=== PATIENT | female | born 1945 | race Two or more races ===

== ENCOUNTER → 2017-08-20 | Emergency (ER) | payer OTHER ==
[~2017-08-20] VITALS: Ht 154.9 cm; Wt 53.5 kg
[~2017-08-20] MED LIST: BACTRIM DS TAB1 EACH PO; TAMS0.4C PO
== END | disposition home or self-care (01) ==
LOC: ER 22:53
DX: N13.2 Hydronephrosis with renal and ureteral calculous obstruction (principal)

== ENCOUNTER 2018-11-07 17:45 | Emergency (ER) | payer OTHER ==
[~2018-11-07] VITALS: Ht 154.9 cm; Wt 53.5 kg
== END 2018-11-07 22:05 | disposition home or self-care (01) ==
LOC: ER 17:45
DX: N20.9 Urinary calculus, unspecified (principal); R31.0 Gross hematuria

== ENCOUNTER 2019-05-30 10:08 | Emergency (ER) | payer OTHER ==
[~2019-05-30] VITALS: Ht 154.9 cm; Wt 59.9 kg
== END 2019-05-30 20:13 | disposition home or self-care (01) ==
LOC: ER 10:08
DX: E86.0 Dehydration (principal); R51 Headache; R11.2 Nausea with vomiting, unspecified

== ENCOUNTER 2020-04-29 02:59 | Emergency (ER) | payer OTHER ==
[~2020-04-29] VITALS: Ht 154.9 cm; Wt 54.4 kg
[2020-04-29] MEDS ORDERED: CIPRO500 MG PO (05:25)
== END 2020-04-29 05:40 | disposition home or self-care (01) ==
LOC: ER 02:59
DX: N20.0 Calculus of kidney (principal)

== ENCOUNTER 2020-05-01 10:18 | Emergency (ER) | payer OTHER ==
[~2020-05-01] VITALS: Ht 154.9 cm; Wt 52.2 kg
[~2020-05-01 10:18] MED LIST changes: +CIPRO500 MG PO
== END 2020-05-01 19:40 | disposition home or self-care (01) ==
LOC: ER 10:18
DX: K52.89 Other specified noninfective gastroenteritis and colitis (principal); E86.0 Dehydration; N20.0 Calculus of kidney; R31.0 Gross hematuria; R10.32 Left lower quadrant pain; R50.9 Fever, unspecified

== ENCOUNTER 2020-05-13 09:32 | Outpatient (CLI) | payer OTHER | END 2020-05-13 09:33 | disposition home or self-care (01) | LOC: SONOGRAMA 09:32 | PROVIDERS: ATTEND Internal Medicine | DX: N20.0 Calculus of kidney (principal); C50.212 Malignant neoplasm of upper-inner quadrant of left female breast ==

== ENCOUNTER 2020-07-14 06:26 | Day surgery (SDC) | payer OTHER | END 2020-07-14 19:20 | disposition home or self-care (01) | LOC: CIR.AMB 06:26 | PROVIDERS: ATTEND Urology | DX: N13.2 Hydronephrosis with renal and ureteral calculous obstruction (principal); Z20.828 Contact with and (suspected) exposure to other viral communicable diseases ==

== ENCOUNTER 2020-07-18 22:08 | Inpatient (IN) | payer OTHER ==
[~2020-07-18] VITALS: Ht 154.9 cm; Wt 52.2 kg
== END 2020-07-21 22:00 | disposition home or self-care (01) | DRG 661 ==
LOC: ER 22:08 → SURH 07-19 04:03 → SURG 07-19 05:00 → SURH 07-19 08:23
PROVIDERS: ADMIT Urology; ATTEND Urology
PROC: 0T768DZ Dilation of Right Ureter with Intraluminal Device, Via Natural or Artificial Opening Endoscopic (ICD-10-PCS; principal; 2020-07-19)
PROC: 0TF38ZZ Fragmentation in Right Kidney Pelvis, Via Natural or Artificial Opening Endoscopic (ICD-10-PCS; 2020-07-19)
PROC: 0TF68ZZ Fragmentation in Right Ureter, Via Natural or Artificial Opening Endoscopic (ICD-10-PCS; 2020-07-19)
DX: N20.1 Calculus of ureter (principal); N20.0 Calculus of kidney; Z20.828 Contact with and (suspected) exposure to other viral communicable diseases

== ENCOUNTER → 2022-05-30 | Emergency (ER) | payer OTHER ==
[~2022-05-30] VITALS: Ht 154.9 cm; Wt 55.3 kg
== END | disposition left against medical advice (07) ==
LOC: ER 23:35
DX: Z53.21 Procedure and treatment not carried out due to patient leaving prior to being seen by health care provider (principal)

== ENCOUNTER 2025-07-14 15:27 | Inpatient (IN) | payer OTHER ==
[~2025-07-14] VITALS: Ht 152.4 cm; Wt 54.4 kg
--- NOTE | 2025-07-14 16:18 | NUR ---
PTE ALERTA Y ORIENTADA X3 REFIERE EPISODIOS RECURRENTES DE VOMITOS Y DOLOR ABDOMINAL. NIETA REFIERE HABERSE ATENIDO EN ESTA PJ DE EMERGENCIAS EN EL EMERITA DE OSCAR Y NO HABERSE RESOLVIDO EL PROBLEMA. SE YAS S/V Y SE UBICA.
[2025-07-14] MEDS ORDERED: ONDANSETRON HCL 2 MG/ML VIAL IV ONE (17:00)
[2025-07-14] MEDS ORDERED: 0.9 % SODIUM CHLORIDE 1,000 ML IV ONE (17:00)
[2025-07-14] MEDS ORDERED: LACTOBACILLUS ACIDOPHILUS 1 CAP CAP PO ONE (17:00)
[2025-07-14] MEDS ORDERED: FAMOTIDINE/PF 20 MG/2 ML VIAL IV ONE (17:00)
[2025-07-14] MEDS ORDERED: HYOSCYAMINE SULFATE 0.125 MG TAB.SUBL SL ONE (17:00)
[2025-07-14 17:37] LABS: BASO % 0.2 % (0.1-1.2); EOS # 0.00 (0.04-0.54); EOS % 0.0 % (0.7-7.0); LYMPH # 0.68 (1.18-3.74); LYMPH % 5.3 % (19.3-53.1); MEAN PLATELET VOLUME 10.70 fl (9.4-12.4); MONO # 0.21 (0.24-0.82); MONO % 1.6 % (4.7-12.5); NEUT # 11.92 (1.56-6.13); NEUT % 92.4 % (34.0-71.1); RED CELL DISTRIBUTION WIDTH 13.4 % (11.6-14.4)
--- NOTE | 2025-07-14 17:39 | NUR ---
PACIENTE ALERTA Y ORIENTADA SE ADMINISTRA MEDICAMENTOS, YAS DE MUESTRA Y SE COMIENZA ACCESO VENOSO CON MEDIDAS ASEPTICAS. SE LE HACE ENTREGA DE ENVACE PARA U/A Y FECCAL LEUKOCYTES
[2025-07-14 18:04] LABS: INR 1.07
[2025-07-14 18:08] LABS: ALT/SGPT 27.0 U/L (12-78); AST/SGOT 21.0 U/L (15-37); BILIRUBIN TOTAL 1.52 mg/dL (0.3-1.2); BUN CREA RATIO 12.0 (7.0-25.0); CREATININE SERUM 1.07 mg/dL (0.55-1.02); GFR 49.72; GLOBULINA 3.0 G/DL (2.4-3.5); GLUCOSE FASTING 117.0 mg/dL (65-100); OSMOLALITY SERUM 281.0 MOSM/KG (275-295)
[2025-07-14 18:08] LABS: URINE APPEARANCE Cloudy; URINE BILIRRUBIN Negative (NEGATIVE); URINE BLOOD Large; URINE COLOR Orange; URINE GLUCOSE Negative (NEGATIVE); URINE KETONE Trace (NEGATIVE); URINE LEUKOCYTE Large; URINE NITRATE Positive; URINE UROBILINOGEN 1.0 E.U./dl
[2025-07-14 18:11] LABS: URINE CAST 1.46 uL (0.0-1.40); URINE EPITHELIAL CELLS 15.9 uL (0.0-38.8); URINE RBC 77.1 uL (0.0-20.8); URINE WBC 1840.5 uL (0.0-23.2)
[2025-07-14 18:17] LABS: URINE PROTEIN 100 (NEGATIVE)
[2025-07-14 18:38] LABS: COVID-19 AG NEGATIVE (NEGATIVE)
[2025-07-14] MEDS ORDERED: CIPROFLOXACIN IN 5 % DEXTROSE 400 MG/200 ML PIGGYBAG IV ONE (19:30)
[2025-07-14] MEDS ORDERED: INSULIN LISPRO 1,000 UNIT/10 ML UNITS SUBCUTANEO PRN (20:30)
[2025-07-14] MEDS ORDERED: DEXTROSE 50 % IN WATER 0.5 G/ML DISP.SYRIN IV PRN (20:30)
[2025-07-14] MEDS ORDERED: ONDANSETRON HCL 4 MG in 0.9 % SODIUM CHLORIDE 50 ML IV PRN (20:45)
[2025-07-15] MEDS ORDERED: FAMOTIDINE/PF 20 MG in 0.9 % SODIUM CHLORIDE 100 ML IV SCH (09:00)
[2025-07-15] MEDS ORDERED: PIPERACILLIN/TAZOBACTAM SODIUM 3.375 GM VIAL IV STA (09:03)
[2025-07-15 09:14] VITALS: BP 118/54; O2SAT 96
[2025-07-15 10:39] LABS: BASO % 0.3 % (0.1-1.2); EOS # 0.02 (0.04-0.54); EOS % 0.1 % (0.7-7.0); LYMPH # 1.82 (1.18-3.74); LYMPH % 11.8 % (19.3-53.1); MEAN PLATELET VOLUME 10.70 fl (9.4-12.4); MONO # 0.68 (0.24-0.82); MONO % 4.4 % (4.7-12.5); NEUT # 12.73 (1.56-6.13); NEUT % 82.5 % (34.0-71.1); RED CELL DISTRIBUTION WIDTH 13.6 % (11.6-14.4)
[2025-07-15 11:41] LABS: BUN CREA RATIO 13.0 (7.0-25.0); CREATININE SERUM 1.05 mg/dL (0.55-1.02); GFR 50.82; GLUCOSE FASTING 82.0 mg/dL (65-100); OSMOLALITY SERUM 283.0 MOSM/KG (275-295)
[2025-07-15] MEDS ORDERED: PIPERACILLIN/TAZOBACTAM SODIUM 3.375 GM VIAL IV SCH (12:00)
[2025-07-15 15:44] LABS: ob POSITIVE (NEGATIVE)
[2025-07-15 21:23] VITALS: BP 149/70
[2025-07-16 04:06] VITALS: BP 120/63; O2SAT 96
[2025-07-16 08:00] VITALS: BP 123/59; O2SAT 99
[2025-07-16] MEDS ORDERED: ONDANSETRON HCL 4 MG in 0.9 % SODIUM CHLORIDE 50 ML IV PRN (16:49)
[2025-07-16] MEDS ORDERED: LACTOBACILLUS ACIDOPHILUS 1 CAP CAP PO SCH (17:27)
[2025-07-16] MEDS ORDERED: ACETAMINOPHEN 500 MG GEL..CAP PO PRN (18:30)
[2025-07-16 18:48] VITALS: BP 143/84; O2SAT 99
[2025-07-16] MEDS ORDERED: FAMOTIDINE/PF 20 MG in 0.9 % SODIUM CHLORIDE 100 ML IV SCH (21:00)
[2025-07-17 02:48] VITALS: BP 150/55; O2SAT 97
[2025-07-17 06:29] LABS: BASO % 0.1 % (0.1-1.2); EOS # 0.07 (0.04-0.54); EOS % 0.7 % (0.7-7.0); LYMPH # 1.31 (1.18-3.74); LYMPH % 13.5 % (19.3-53.1); MEAN PLATELET VOLUME 11.40 fl (9.4-12.4); MONO # 0.68 (0.24-0.82); MONO % 7.0 % (4.7-12.5); NEUT # 7.60 (1.56-6.13); NEUT % 78.3 % (34.0-71.1); RED CELL DISTRIBUTION WIDTH 13.2 % (11.6-14.4)
[2025-07-17 07:05] LABS: ALT/SGPT 19.0 U/L (12-78); AST/SGOT 14.0 U/L (15-37); BILIRUBIN TOTAL 0.73 mg/dL (0.3-1.2); BUN CREA RATIO 7.0 (7.0-25.0); CREATININE SERUM 0.84 mg/dL (0.55-1.02); GFR 65.74; GLOBULINA 2.9 G/DL (2.4-3.5); GLUCOSE FASTING 95.0 mg/dL (65-100); OSMOLALITY SERUM 281.0 MOSM/KG (275-295)
[2025-07-17 08:00] VITALS: BP 132/60; O2SAT 98
[2025-07-17] MEDS ORDERED: AMINO ACIDS 1 EACH TABLET PO SCH (09:00)
[2025-07-17] MEDS ORDERED: CALCIUM CARBONATE/VITAMIN D3 1 TAB TABLET PO SCH (09:00)
[2025-07-17] MEDS ORDERED: ONDANSETRON HCL 4 MG in 0.9 % SODIUM CHLORIDE 50 ML IV SCH (09:00)
[2025-07-17] MEDS ORDERED: POTASSIUM CHLORIDE IN WATER 100 ML IV NR (10:00)
[2025-07-17 18:20] VITALS: BP 130/86
[2025-07-17] MEDS ORDERED: 0.9 % SODIUM CHLORIDE 1,000 ML IV SCH ×2 (19:00)
[2025-07-18 03:04] VITALS: BP 134/70; O2SAT 96
[2025-07-18] MEDS ORDERED: FAMOTIDINE/PF 20 MG in 0.9 % SODIUM CHLORIDE 100 ML IV SCH (09:00)
[2025-07-18 09:23] VITALS: BP 124/55; O2SAT 98
[2025-07-18 18:44] VITALS: BP 123/58
[2025-07-19 02:54] VITALS: BP 114/61; O2SAT 95
[2025-07-19 09:07] VITALS: BP 123/60; O2SAT 98
[2025-07-19 19:17] VITALS: BP 152/70; O2SAT 98
[2025-07-20 03:07] VITALS: BP 109/64; O2SAT 100
[2025-07-20 09:45] VITALS: BP 150/68; O2SAT 98
[2025-07-20 18:17] VITALS: BP 160/76; O2SAT 100
[2025-07-21 02:35] VITALS: BP 148/70; O2SAT 99
[2025-07-21 09:42] VITALS: BP 147/71; O2SAT 98
[2025-07-21] MEDS ORDERED: PEG3350/SOD SULF,BICARB,CL/KCL 4,000 ML GALLON PO NR (15:00)
[2025-07-21 18:41] VITALS: BP 153/65; O2SAT 97
[2025-07-22 11:34] VITALS: BP 151/87; O2SAT 97
[2025-07-22 15:37] VITALS: BP 136/80; O2SAT 96
[2025-07-22] MEDS ORDERED: PEPCID AC20 MG PO (15:53)
[2025-07-22] MEDS ORDERED: AMOX1TAB5 PO (15:53)
[2025-07-22] MEDS ORDERED: INTESTINEX680 M1 PO (15:53)
== END 2025-07-22 16:20 | disposition home or self-care (01) | DRG 872 ==
LOC: ER 15:28 → MEDJ 20:56 → SEC-K 20:56 → MEDJ 22:56
PROVIDERS: General Practice; ADMIT Internal Medicine; ATTEND Internal Medicine
PROC: BW21ZZZ Computerized Tomography (CT Scan) of Abdomen and Pelvis (ICD-10-PCS; principal; 2025-07-14)
DX: A41.9 Sepsis, unspecified organism (principal); N39.0 Urinary tract infection, site not specified; N17.8 Other acute kidney failure; R65.10 Systemic inflammatory response syndrome (SIRS) of non-infectious origin without acute organ dysfunction; E87.6 Hypokalemia; E86.0 Dehydration; N20.0 Calculus of kidney; K52.89 Other specified noninfective gastroenteritis and colitis; K59.09 Other constipation